=== PATIENT | female | born 1935 | race African-American/Black ===

== ENCOUNTER 2019-02-12 20:33 | Emergency (ER) | payer MEDICARE ==
[~2019-02-12] VITALS: Ht 175.3 cm; Wt 68.0 kg
[2019-02-12] MEDS ORDERED: THYROID PILL (21:06)
[2019-02-12] MEDS ORDERED: UNKNOWN BP MEDS (21:06)
[2019-02-12] MEDS ORDERED: GABAPENTIN100 MG PO (21:08)
[2019-02-12] MEDS ORDERED: GABAPENTIN600 MG PO (21:57)
[2019-02-12] MEDS ORDERED: LEVOTHYROXIN100 MC1 PO (21:58)
[2019-02-12] MEDS ORDERED: RANITIDINE HCL300 MG PO (21:58)
[2019-02-12] MEDS ORDERED: BACLOFEN10 MG PO (21:58)
[2019-02-12] MEDS ORDERED: DIOVAN160 MG PO ×2 (21:59→23:09)
[2019-02-12] MEDS ORDERED: SIMVASTATIN40 MG PO (21:59)
[2019-02-12] MEDS ORDERED: AMLODIPINE BESY10 MG PO ×2 (21:59→23:09)
[2019-02-12] MEDS ORDERED: VITAMIN D50000 UNIT PO (22:00)
[2019-02-12] MEDS ORDERED: OMEGA Q PLUS 100 PO (22:03)
[2019-02-12] MEDS ORDERED: PREMARIN0.625 MG/G VA (22:04)
[2019-02-12] MEDS ORDERED: HYDROXYCHLOR200 M1 PO (22:05)
[2019-02-12] MEDS ORDERED: LOSARTAN POTAS100 MG PO (22:06)
[2019-02-12 22:17] LABS: HEMATOCRIT 37.8 % (37.0-47.0); HEMOGLOBIN 12.3 g/dl (12.0-16.0); IMMATURE GRANULOCYTES 0.3 % (0.0-5.0); MEAN CELL VOLUME 96.4 fL CALC (80.0-100.0); MEAN CORPUSCULAR HGB 31.4 pG CALC (26.0-32.0); MEAN CORPUSCULAR HGB CONC 32.5 g/L CALC (32.0-36.0); NEUT# 6.1 thou/uL (2.00-7.15); RED BLOOD COUNT 3.92 mill/uL (4.20-5.60); RED CELL DISTRI WIDTH 16.8 % (11.5-15.5)
[2019-02-12 22:49] LABS: ALBUMIN 3.9 g/dL (3.2-5.0); ALKALINE PHOSPHATASE 102 u/l (38-126); ANION GAP 10 (6-22 (CALC)); BILIRUBIN, TOTAL 0.3 mg/dL (0.0-1.4); BUN 16 mg/dL (8-23); BUN/CREATININE RATIO 17 (12-20 (CALC)); CARBON DIOXIDE 29 mmol/l (22-30); CHLORIDE 107 mmol/l (95-108); GFR 53 ML/MIN (>=60 (CALC)); GFR FOR AFR.AMER. > 60 ML/MIN (>=60 (CALC)); POTASSIUM 4.2 mmol/l (3.5-5.1); SGOT/AST 26 u/l (9-36); SODIUM 142 mmol/l (137-146)
[2019-02-12] MEDS ORDERED: ULTRAM50 M1 PO (23:04)
[2019-02-12 23:10] VITALS: BP 156/72
== END 2019-02-12 23:23 | disposition home or self-care (01) ==
LOC: ED 20:33
PROVIDERS: Emergency Medicine
DX: S20.212A Contusion of left front wall of thorax, initial encounter (principal); I12.9 Hypertensive chronic kidney disease with stage 1 through stage 4 chronic kidney disease, or unspecified chronic kidney disease; N18.9 Chronic kidney disease, unspecified; I25.10 Atherosclerotic heart disease of native coronary artery without angina pectoris; J44.9 Chronic obstructive pulmonary disease, unspecified; E03.9 Hypothyroidism, unspecified; W07.XXXA Fall from chair, initial encounter; Y93.89 Activity, other specified; Y92.89 Other specified places as the place of occurrence of the external cause